=== PATIENT | male | born 1995 | race African-American/Black ===

== ENCOUNTER 2021-05-20 16:53 | Outpatient (CLI) | payer OTHER | END 2021-05-20 16:54 | LOC: CSHRAD 16:53 | PROVIDERS: ATTEND Psychiatry & Neurology Neurology | DX: S72.92XA Unspecified fracture of left femur, initial encounter for closed fracture (principal); S82.002A Unspecified fracture of left patella, initial encounter for closed fracture; S32.009A Unspecified fracture of unspecified lumbar vertebra, initial encounter for closed fracture; M79.89 Other specified soft tissue disorders; M47.817 Spondylosis without myelopathy or radiculopathy, lumbosacral region | CPT/HCPCS: 72100 ==